=== PATIENT | male | born 1970 | race Caucasian/White ===

== ENCOUNTER 2017-04-12 10:00 | Outpatient (RCR) ==
--- NOTE | 2017-04-03 11:22 | RS.OPPTEV2 ---
Date of Note: 03/31/17 Visit #: 1 Date of Evaluation: 03/31/17 Payer Source: Insurance Surgery Performed?: Yes Procedure Performed: Right ACL reconstruction with Allograft Date of Procedure: 03/28/17 Treatment Diagnosis: Right knee joint effusion, knee stiffness, s/p ACL reconstruction History of Condition/Mechanism of Injury:: Patient reports injurying the right knee while performing Martial Arts. 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 States the day after surgery, he stood up with the brace on and he did not realize it was unlocked. States his knee gave out and he caught himself. He thinks his knee did not bend beyond 45 degrees. States he has some tingling/numbness in the toes and ball of the foot. States he his pain is dull, not sharp. States pain is 3/10 at rest. He has been icing the knee with a cryocuff. 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 He hopes to return to light duty in 4-6 weeks. Treatment Side (optional): Right Medical History Medical History: Cancer (Testicular Cancer 1996) Surgical History Comments:: left ACL reconstruction 2009, 2013 Smoking Status: Never smoker Hx Home Medications: Oxycodone Patient's Goals: His goal is to return to his previous level of function at home and work. Pain Assessment - Pain Description Pain Location: right knee Pain Description: Dull Current Pain Intensity: 3/10 Worst Pain Intensity: 10/10 Functional Outcome Measure LE Functional Scale: 17 (17/80=78.75% impairment) - G Codes & Severity Modifier G Codes & Modifier: NA Source of G Code score: NA Observation - Observation Inspection: Patient presents on two crutches with locked knee brace and MINERVA wrap to right knee joint. Right knee demonstrates scope incisions covered by steri-streps and 3/4 inch vertical incision closed with dermabond. Demonstrates light bruising along the medial/anterior region of the knee joint. Girth Measurement Lower: Right LE: sup patella 44 cm. inferior patella: 38.5 cm. malleoli: 26 cm Gait - Gait Pattern Gait Comments: Patient ambulates with two crutches WBAT on right LE with brace in place to the right knee. - Left Knee ROM Left Knee Extension: +1 degrees extension Left Knee Flexion: 144 (degrees AROM) - Right Knee ROM Right Knee Extension: -14 degrees from full extension Right Knee Flexion: 67 (degrees AROM) Comments: Knee ROM limited by swelling. - Left Knee Strength Left Knee Extension: 5 Normal Left Knee Flexion: 5 Normal - Right Knee Strength Right Knee Extension: 4- Good- Right Knee Flexion: 4 Good Palpation Comments:: Patient reports light tenderness with mobility of the patella. General tenderness of the knee joint due to recent surgery. Sensation - Sensation Comments: Reports tingling in the right foot, toes and forefoot. Additional Comments: Additional Comments: Patient has good flexibility in the hamstrings and heelcords. - Treatment Modality: Electrical Stim Unattended Parameters/Method Applied: 4 large pads crossed current to the right knee X 20 mins HVGS up to 85 peak volts. Patient Position: Supine - Heat/Cryotherapy Treatment: Cryotherapy (with EStim to right knee) Interventions - Exercise/Activities/Manual Therapy Exercises/Activities: Patient assisted with ROM of the right knee into flexion/ extension. Assisted with SLR. Patient unable to initiate SLR. Advised him to only perform SLR with assistance to avoid lag, until his quad control improves. Patient instructed in HEP per protocol: ankle pumps, quad sets, SLR's, knee flexion in sitting (avoiding flexion beyond 90 degrees), patella mobilization, heelcord/hamstring stretch. Manual Therapy: NA HOME EXERCISE PROGRAM: ankle pumps, quad sets, SLR's, knee flexion in sitting ( avoiding flexion beyond 90 degrees), patella mobilization, heelcord/hamstring stretch. - Charges Total Direct Minutes: 40 mins Total Treatment Time: 60 mins Procedures billed for this date of service:: MARIAH Avendaño CP, EStim Assessment Assessment: Patient presents to therapy 3 days s/p right ACL reconstruction with allograft. He presents with knee joint effusion, limited knee flexion and extension, and decreased quad control. His overall level of function with ADL' s and ambulation is limited at this time. He demonstrates good potential to return to his previous level of function with skilled therapy to appropriately progress with exercises and activites to regain functional right knee AROM and joint stability. Patient Education: Education of diagnosis, Body/Joint mechanics, Home Exercise Program, Home Safety, Activity Modification, Education of Plan of Care Rehab Potential: Good Short Term Goals Goal #1: Pt independent and compliant with HEP. Goal to be met by: 04/17/17 Goal #2: Right knee to demonstrate good quad control. Goal to be met by: 04/17/17 Goal #3: Right knee AROM 0 to 90 degrees flexion. Goal to be met by: 04/17/17 Goal #4: Pt to amb. with brace, w/o crutches with reports of no knee pain. 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 Goal to be met by: 06/27/17 Goal #2: Score on LE functional scale improved to 60/80. Goal to be met by: 06/27/17 Goal #3: Pt to amb. w/o brace level/unlevel terrain without gait deviations. Goal to be met by: 06/27/17 Goal #4: Pt able to return to work with minimal limitation. Goal to be met by: 06/27/17 Plan - Treatment to be Provided Procedures: Therapeutic Exercises, Therapeutic Activity, Neuromuscular Rehab, Manual Therapy, Patient Education Modalities: Electrical Stimulation, Class IV Laser, Cryotherapy - Treatment Plan Frequency: 3 X week Duration: 12 weeks ORDER # VISITS AND/OR THROUGH DATE: 06/27/17 - Treatment Code (1) Knee joint effusion Qualifiers: Laterality: right Qualified Code(s): M25.461 - Effusion, right knee (2) Knee stiffness Qualifiers: Laterality: right Qualified Code(s): M25.661 - Stiffness of right knee, not elsewhere classified (3) ACL (anterior cruciate ligament) rupture Code(s): S83.519A - SPRAIN OF ANTERIOR CRUCIATE LIGAMENT OF UNSP KNEE, INIT Qualifiers: Encounter type: subsequent encounter Laterality: right Qualified Code(s) : S83.511D - Sprain of anterior cruciate ligament of right knee, subsequent encounter (4) S/P ACL reconstruction Code(s): Z98.89 - OTHER SPECIFIED POSTPROCEDURAL STATES * DO NOT USE * Comments: Z98.890
--- NOTE | 2017-04-04 14:57 | RS.OPPTDN ---
Subjective Date of Note: 04/04/17 Visit #: 2 Date of Evaluation: 03/31/17 Payer Source: Insurance Treatment Diagnosis: Right knee joint effusion, knee stiffness, s/p ACL reconstruction Current Subjective/complaints:: Patient reports concern over discomfort at the right knee medial joint line and tingling at the ball of the right foot plantar surface. Reports an increase in joint mobility following exercise today. Pain Assessment - Pain Description Pain Location: right knee Pain Description: Dull Current Pain Intensity: 3/10 - Treatment Modality: Electrical Stim Unattended Parameters/Method Applied: [id number] HVGC to 160p.v. with 4 large pads to the right knee joint with CP following exercise. Patient Position: Supine - Heat/Cryotherapy Treatment: Cryotherapy ([id number] with Estim ) Interventions - Exercise/Activities/Manual Therapy Exercises/Activities: Begins with quad sets with support under knee. Ankle pumps. Patient assisted with ROM of the right knee into flexion/extension. Assisted with SLR, 2s/10reps. Green theraband for resistive ankle df, 3s/ 10reps. Assist to right LE with patient performing modified SLR/VMO. Quad set with focus on VMO. In sitting, heel slides into flexion. Assist for knee flexion to 90 degrees. Back to supine for additional SLR 2s/10reps with assist and passive flexion/extension and heel slides. Total minutes of Exercise: 35mins Manual Therapy: NA HOME EXERCISE PROGRAM: ankle pumps, quad sets, SLR's, knee flexion in sitting ( avoiding flexion beyond 90 degrees), patella mobilization, heelcord/hamstring stretch. Quad sets focusing on VMO. - Charges Total Direct Minutes: 35mins Total Treatment Time: 55mins Procedures billed for this date of service:: CP, Estim unattended, EX2 Assessment: Patient with concerns over medial joint pain. He does report improvement with exericse and modalities today. Patient Education: Body/Joint mechanics, Home Exercise Program Patient demonstrates compliance with HEP?: Yes Short Term Goals Goal #1: Pt independent and compliant with HEP. Goal to be met by: 04/17/17 Progress towards Goal:: Progressing Goal #2: Right knee to demonstrate good quad control. Goal to be met by: 04/17/17 Progress towards Goal:: Progressing Goal #3: Right knee AROM 0 to 90 degrees flexion. Goal to be met by: 04/17/17 Progress towards Goal:: Progressing Goal #4: Pt to amb. with brace, w/o crutches with reports of no knee pain. Goal to be met by: 04/17/17 Progress towards Goal:: Progressing Spoon Maker Goals Goal #1: Right knee AROM WFL's to perform all ADL's. Goal to be met by: 06/27/17 Goal #2: Score on LE functional scale improved to 60/80. Goal to be met by: 06/27/17 Goal #3: Pt to amb. w/o brace level/unlevel terrain without gait deviations. Goal to be met by: 06/27/17 Goal #4: Pt able to return to work with minimal limitation. Goal to be met by: 06/27/17 Plan PLAN OF CARE EXPIRES ON:: 06/27/17 ORDER # VISITS AND/OR THROUGH DATE: 06/27/17 PLAN: Continue Plan of Care (Continue with progression of exercise per protocol. )
--- NOTE | 2017-04-05 15:49 | RS.OPPTDN ---
Subjective Date of Note: 04/05/17 Visit #: 3 Date of Evaluation: 03/31/17 Payer Source: Insurance Treatment Diagnosis: Right knee joint effusion, knee stiffness, s/p ACL reconstruction Current Subjective/complaints:: Patient reports a reduction in pain and swelling of the right knee after treatment yesterday. Pain Assessment - Pain Description Pain Location: right knee Pain Description: Dull Current Pain Intensity: 3/10 - Treatment Modality: Electrical Stim Unattended Parameters/Method Applied: [id number] HVGC to 210p.v. with 4 large pads to the right knee joint, cross current, with CP following EX. Patient Position: Supine - Heat/Cryotherapy Treatment: Cryotherapy ([id number] with Estim ) Interventions - Exercise/Activities/Manual Therapy Exercises/Activities: Quad sets with manual under knee. Ankle pumps. Patient assisted with ROM of the right knee into flexion/extension. Paitent peroforms SLR with light assist, 2s/10reps. Green theraband for resistive ankle df 3s/ 10reps, then inversion and eversion 2s/10reps each. Assist to right LE with patient performing modified SLR/VMO, 4s/5reps. Quad set with focus on VMO. Isometric hip add with ball between knees, then isometric inversion with ball between feet. In sitting and supine, heel slides into flexion. Assist for knee flexion to 90 degrees. Back to supine for additional SLR 2s/10reps. Passive flexion/extension and heel slides. Total minutes of Exercise: 30mins Manual Therapy: NA HOME EXERCISE PROGRAM: ankle pumps, quad sets, SLR's, knee flexion in sitting ( avoiding flexion beyond 90 degrees), patella mobilization, heelcord/hamstring stretch. Quad sets focusing on VMO. - Objective Findings Observations,measurements,etc.: Passive right knee flexion to 90 degrees. - Charges Total Direct Minutes: 30mins Total Treatment Time: 60mins Procedures billed for this date of service:: EX2, CP, Estim unattended Assessment: Patient reports a good response to session yesterday, with a reduction in pain and swelling. Patient appears motivated to progress exercise as instructed. Patient Education: Body/Joint mechanics, Home Exercise Program, Home Safety Patient demonstrates compliance with HEP?: Yes Short Term Goals Goal #1: Pt independent and compliant with HEP. Goal to be met by: 04/17/17 Progress towards Goal:: Progressing Goal #2: Right knee to demonstrate good quad control. Goal to be met by: 04/17/17 Progress towards Goal:: Progressing Goal #3: Right knee AROM 0 to 90 degrees flexion. Goal to be met by: 04/17/17 Progress towards Goal:: Progressing Goal #4: Pt to amb. with brace, w/o crutches with reports of no knee pain. Goal to be met by: 04/17/17 Progress towards Goal:: Progressing Jail Goals Goal #1: Right knee AROM WFL's to perform all ADL's. Goal to be met by: 06/27/17 Goal #2: Score on LE functional scale improved to 60/80. Goal to be met by: 06/27/17 Goal #3: Pt to amb. w/o brace level/unlevel terrain without gait deviations. Goal to be met by: 06/27/17 Goal #4: Pt able to return to work with minimal limitation. Goal to be met by: 06/27/17 Plan PLAN OF CARE EXPIRES ON:: 06/27/17 ORDER # VISITS AND/OR THROUGH DATE: 06/27/17 PLAN: Progress Exercises (Continue modalities and progress exercise per protocol.)
--- NOTE | 2017-04-07 14:26 | RS.OPPTDN ---
Subjective Date of Note: 04/07/17 Visit #: 4 Date of Evaluation: 03/31/17 Payer Source: Insurance Treatment Diagnosis: Right knee joint effusion, knee stiffness, s/p ACL reconstruction Current Subjective/complaints:: Patient reports having follow-up with physician today. States he was told he was doing well. Reports improvement in SLR and a decrease in swelling. Pain Assessment - Pain Description Pain Location: right knee Pain Description: Dull Current Pain Intensity: 2-3/10 - Treatment Modality: Electrical Stim Unattended Parameters/Method Applied: [id number] HVGC to 175p.v. with 4 large pads cross current to the right knee with CP following EX. Patient Position: Supine - Heat/Cryotherapy Treatment: Cryotherapy ([id number] with Estim ) Interventions - Exercise/Activities/Manual Therapy Exercises/Activities: Began on stationary bike [id number], half revolutions slow pace. Quad sets, multiple reps. Ankle pumps and heel slides. Patient assisted with ROM of the right knee into flexion/extension. Patient peroforms SLR no assist, 3s/10reps. Light assist for SLR/VMO, 4s/5reps. Green theraband for resistive ankle df 3s/10reps, then inversion and eversion 2s/10reps each. Began red theraband for hip add and abd with knee in full extension, 3s/10reps each. Isometric hip add with ball between knees. In sitting, heel slides into flexion. Red theraband for short range ham curl. Total minutes of Exercise: 25mins/35mins Manual Therapy: NA HOME EXERCISE PROGRAM: ankle pumps, quad sets, SLR's, knee flexion in sitting ( avoiding flexion beyond 90 degrees), patella mobilization, heelcord/hamstring stretch. Quad sets focusing on VMO. Standing red theraband for hip x4 directions. - Charges Total Direct Minutes: 25mins Total Treatment Time: 55mins Procedures billed for this date of service:: EX2, CP, Estim unattended Assessment: Patient progressing well with strengthening and ROM exercise. Patient Education: Home Exercise Program, Home Safety, Activity Modification Patient demonstrates compliance with HEP?: Yes Short Term Goals Goal #1: Pt independent and compliant with HEP. Goal to be met by: 04/17/17 (100%) Progress towards Goal:: Met Goal #2: Right knee to demonstrate good quad control. Goal to be met by: 04/17/17 (75%) Progress towards Goal:: Progressing Goal #3: Right knee AROM 0 to 90 degrees flexion. Goal to be met by: 04/17/17 (100%) Progress towards Goal:: Met Goal #4: Pt to amb. with brace, w/o crutches with reports of no knee pain. Goal to be met by: 04/17/17 (80%) Progress towards Goal:: Progressing [facility] Goals Goal #1: Right knee AROM WFL's to perform all ADL's. Goal to be met by: 06/27/17 Progress towards goal: Progressing Goal #2: Score on LE functional scale improved to 60/80. Goal to be met by: 06/27/17 Goal #3: Pt to amb. w/o brace level/unlevel terrain without gait deviations. Goal to be met by: 06/27/17 Goal #4: Pt able to return to work with minimal limitation. Goal to be met by: 06/27/17 Plan PLAN OF CARE EXPIRES ON:: 06/27/17 ORDER # VISITS AND/OR THROUGH DATE: 06/27/17 PLAN: Progress Exercises
--- NOTE | 2017-04-10 15:05 | RS.OPPTDN ---
Subjective Date of Note: 04/10/17 Visit #: 5 Date of Evaluation: 03/31/17 Payer Source: Insurance Treatment Diagnosis: Right knee joint effusion, knee stiffness, s/p ACL reconstruction Current Subjective/complaints:: Patient reports continued improvement in walking and with HEP. States he is walking short distances at home without crutches. He has been told by physician he may d/c brace when he no longer has a limp. Pain Assessment - Pain Description Pain Location: right knee Pain Description: Dull Current Pain Intensity: 2-3/10 - Treatment Modality: Electrical Stim Unattended Parameters/Method Applied: [id number] HVGC to 225p.v. with 4 large pads to the right knee with CP following EX. Patient Position: Supine - Heat/Cryotherapy Treatment: Cryotherapy ([id number] with Estim ) Interventions - Exercise/Activities/Manual Therapy Exercises/Activities: Began on stationary bike [id number], progressed to full revolutions slow pace. Quad sets, multiple reps. Ankle pumps and heel slides. Patient assisted with ROM of the right knee into flexion/extension. Added 1# to SLR, 3s/10reps. Added 1/2# to SLR/VMO, 4s/5reps. Green theraband for resistive ankle df 3s/10reps, then inversion and eversion 2s/10reps each. Began red theraband for TKE in standing. Mini-squats, toe-ups, and isometric knee extension at wall with ball in standing. Isometric hip add with ball between knees and between feet for isometric inversion. In sitting, heel slides into flexion. Total minutes of Exercise: 25mins/35mins Manual Therapy: NA HOME EXERCISE PROGRAM: ankle pumps, quad sets, SLR's, knee flexion in sitting ( avoiding flexion beyond 90 degrees), patella mobilization, heelcord/hamstring stretch. Quad sets focusing on VMO. Standing red theraband for hip x4 directions. TKE with red theraband in standing. - Charges Total Direct Minutes: 25mins Total Treatment Time: 55mins Procedures billed for this date of service:: EX2, CP, Estim unattended Assessment: Patient progressing well with SLR and now able to progress to light resistance. Patient Education: Body/Joint mechanics, Home Exercise Program, Home Safety, Activity Modification Patient demonstrates compliance with HEP?: Yes Short Term Goals Goal #1: Pt independent and compliant with HEP. Goal to be met by: 04/17/17 (100%) Progress towards Goal:: Met Goal #2: Right knee to demonstrate good quad control. Goal to be met by: 04/17/17 (75%) Progress towards Goal:: Progressing Goal #3: Right knee AROM 0 to 90 degrees flexion. Goal to be met by: 04/17/17 (100%) Progress towards Goal:: Met Goal #4: Pt to amb. with brace, w/o crutches with reports of no knee pain. Goal to be met by: 04/17/17 (80%) Progress towards Goal:: Progressing Retirement Goals Goal #1: Right knee AROM WFL's to perform all ADL's. Goal to be met by: 06/27/17 Progress towards goal: Progressing Goal #2: Score on LE functional scale improved to 60/80. Goal to be met by: 06/27/17 Goal #3: Pt to amb. w/o brace level/unlevel terrain without gait deviations. Goal to be met by: 06/27/17 Progress towards goal: Progressing Goal #4: Pt able to return to work with minimal limitation. Goal to be met by: 06/27/17 Plan PLAN OF CARE EXPIRES ON:: 06/27/17 ORDER # VISITS AND/OR THROUGH DATE: 06/27/17 PLAN: Progress Exercises
--- NOTE | 2017-04-12 13:34 | RS.OPPTDN ---
Subjective Date of Note: 04/12/17 Visit #: 6 Date of Evaluation: 03/31/17 Payer Source: Insurance Treatment Diagnosis: Right knee joint effusion, knee stiffness, s/p ACL reconstruction Current Subjective/complaints:: Patient presesnts to department wearing brace but reports increasing time without brace at home. States swelling improving and SLR is better. States he is planning to return to work light duty after follow-up appointment and is planning to complete thearpy at another facility that has later hours to accomidate his work schedule. States he will continue HEP as instructed and be discharged at this time as other facility will not schedule him until discharge has been completed. Patient is hoping to progress HEP and reduce therapy to once a week. Pain Assessment - Pain Description Pain Location: right knee Pain Description: Dull Current Pain Intensity: 2/10 Other Comments regarding Pain:: Discomfort felt at end range with full extension with quad sets. - Treatment Modality: Electrical Stim Unattended Parameters/Method Applied: [id number] HVGC to 225p.v. 4 large pads cross current to the right knee with CP following EX. Patient Position: Supine - Heat/Cryotherapy Treatment: Cryotherapy ([id number] with Estim ) Interventions - Exercise/Activities/Manual Therapy Exercises/Activities: Stationary bike x8mins, full revolutions slow pace. Quad sets, multiple reps. Ankle pumps and heel slides. 1# to SLR, 3s/10reps. SLR/VMO , 2s/10reps. Green theraband for resistive ankle df 3s/10reps, then inversion and eversion 2s/10reps each. Began ham curl green theraband, short range. Increased to green theraband for TKE in standing, multiple reps. Mini-squats, toe-ups. Short range leg press with light weight for closed chain strengthening. Wall slides with large therapy ball, short range. In sitting, heel slides into flexion. Total minutes of Exercise: 30mins Manual Therapy: NA HOME EXERCISE PROGRAM: ankle pumps, quad sets, SLR's, knee flexion in sitting ( avoiding flexion beyond 90 degrees), patella mobilization, heelcord/hamstring stretch. Quad sets focusing on VMO. Standing red theraband for hip x4 directions. TKE with red or green theraband in standing. - Objective Findings Observations,measurements,etc.: Patient keeps right knee flexion limited to 90 degrees per protocol. He demos full extension with quad sets, but reports mild discomfort. - Charges Total Direct Minutes: 30mins Total Treatment Time: 55mins Procedures billed for this date of service:: EX2, CP, Estim unattended Assessment: Patient motivated to progress toward advanced HEP when protocol allows and is looking to return to work. He continues to want CP and Estim to reduce swelling, and is using a TENS unit at home. He is independent with current HEP and has copies. Patient Education: Body/Joint mechanics, Home Exercise Program, Home Safety Patient demonstrates compliance with HEP?: Yes Short Term Goals Goal #1: Pt independent and compliant with HEP. Goal to be met by: 04/17/17 (100%) Progress towards Goal:: Met Goal #2: Right knee to demonstrate good quad control. Goal to be met by: 04/17/17 (75%) Progress towards Goal:: Progressing Goal #3: Right knee AROM 0 to 90 degrees flexion. Goal to be met by: 04/17/17 (100%) Progress towards Goal:: Met Goal #4: Pt to amb. with brace, w/o crutches with reports of no knee pain. 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 Goal to be met by: 06/27/17 Progress towards goal: Progressing Goal #2: Score on LE functional scale improved to 60/80. Goal to be met by: 06/27/17 Goal #3: Pt to amb. w/o brace level/unlevel terrain without gait deviations. Goal to be met by: 06/27/17 Progress towards goal: Progressing Goal #4: Pt able to return to work with minimal limitation. Goal to be met by: 06/27/17 Plan PLAN OF CARE EXPIRES ON:: 06/27/17 ORDER # VISITS AND/OR THROUGH DATE: 06/27/17 PLAN: Plan for Discharge (Discharge with HEP as patient will be transferring to another facility.)
--- NOTE | 2017-04-12 13:50 | RS.QUICKDC ---
Discharge from PT Date of Discharge: 04/12/17 Number of Visits: 6 Reason for Discharge: Patient progressed well with initial phase of protocol. He met 3 of 4 STG's and was independent with HEP as instructed. Patient asked to be discharged so that he may be able to schedule with another facility that will accommodate his work schedule. Patient has been instructed in precautions and given copies of addiitonal HEP. Please refer to last Daily Note for specifics of treatment and goals. Discharge at this time at patient request.
== END 2017-04-22 ==
PROVIDERS: ATTEND Orthopaedic Surgery
DX: S83.511A Sprain of anterior cruciate ligament of right knee, initial encounter (principal)

== ENCOUNTER 2017-04-18 10:38 | Outpatient (CLI) ==
--- NOTE | 2017-04-18 12:17 | US ---
EXAM: Ultrasound venous Doppler right lower extermity HISTORY: Pain in right leg COMPARISON: None TECHNIQUE: Venous duplex ultrasound of the right lower extremity was performed using color, ceballos-sca le, and Doppler flow imaging. FINDINGS: There is normal color flow and compression of the right common femoral, greater saphenous, profunda femoral, femoral, popliteal, peroneal, posterior tibial, and anterior tibial veins without evidence of intraluminal thrombus. No reflux is identified. IMPRESSION: No right lower extremity deep venous thrombosis.
== END 2017-04-18 10:39 | disposition home or self-care (01) ==
LOC: RAD 10:38
PROVIDERS: ATTEND Emergency Medicine
DX: M79.604 Pain in right leg (principal)